=== PATIENT | female | born 1925 | race Caucasian/White ===

== ENCOUNTER 2016-07-11 14:23 | Emergency (ER) | payer MEDICARE, BC ==
[~2016-07-11 14:23] MED LIST: ADVIL200 M1 PO; ANTACID SUSPEN PO; ANTI-DIARRHEA2 MG PO; FISH OIL1 CAP PO; IBUPROFEN400 M1 PO; LEVAQUIN500 M1 PO; MAPAP325 M2 PO; MILK OF MAGNESIA PO; MUCINEX600 M1 PO; MULTIVITAMIN1 TAB PO; NORCO 5/325 TAB1 TAB PO; OXYCODONE/APAP PO; QUETIAPINE FUMA25 M1 PO; TAB-A-VITE1 EAC1 PO; ZOFRAN ODT4 MG/UDTAB PO
[2016-07-11] MEDS ORDERED: TAB-A-VITE1 EAC1 PO (14:29)
[2016-07-11] MEDS ORDERED: IBUPROFEN400 M1 PO (14:30)
[2016-07-11] MEDS ORDERED: ANTI-DIARRHEAL2 M2 PO (14:30)
[2016-07-11] MEDS ORDERED: ANTACID SUSPEN PO (14:30)
[2016-07-11] MEDS ORDERED: MAPAP325 M2 PO (14:31)
[2016-07-11] MEDS ORDERED: QUETIAPINE FUMA25 M1 PO (14:34)
[2016-07-11] MEDS ORDERED: MILK OF MAGNESIA PO (14:34)
== END 2016-07-11 17:47 ==
LOC: EDMED 14:23
PROC: 2W3DX1Z Immobilization of Left Lower Arm using Splint (ICD-10-PCS; principal; 2016-07-11)
DX: S52.532A Colles' fracture of left radius, initial encounter for closed fracture (principal); F03.90 Unspecified dementia, unspecified severity, without behavioral disturbance, psychotic disturbance, mood disturbance, and anxiety; Z79.899 Other long term (current) drug therapy; W19.XXXA Unspecified fall, initial encounter